=== PATIENT | female | born 1955 | race Caucasian/White ===

== ENCOUNTER 2016-10-04 05:04 | Inpatient (IN) | payer BC, OTHER ==
[2016-09-13 14:13] VITALS: BMI 37.0
--- NOTE | 2016-09-13 14:55 | PAT Medication Instructions ---
Service Date Sep 13, 2016. Current Home Medication List Calcium Carbonate-Vitamin D (Calcium + D), 1 TAB PO QAM Chromium-Cinnamon (Cinnamon Plus Chromium), 1 TAB PO NOON Fish Oil (Sharon-3), 1,000 MG PO NOON Furosemide (Lasix), 20 MG PO QAM PRN for RN Gabapentin (Neurontin), 300 MG PO BID Glipizide (Glipizide Er), 1 TAB PO BID Liraglutide (Victoza), 1.8 MG INJ QAM Losartan Potassium (Cozaar), 25 MG PO QAM Morphine Cont Rel (Ms Contin), 15 MG PO Q12 Oxycodone Ir (Roxicodone Ir), 10 MG PO Q6H PRN for Pain Pantoprazole (Protonix), 40 MG PO HS Pioglitazone Hcl (Pioglitazone Hcl), 45 MG PO QAM Rivaroxaban (Xarelto), 15 MG PO BID [Eileen C], 1,000 MG PO NOON [Flex Free Joint], 1 TAB PO NOON Medication Instructions For Your Scheduled Surgery Rivaroxaban (Xarelto), 15 MG PO BID (patient will check with blood doctor (Dr Espinosa) and surgeon for instructions) - Hold the following medications 10 days prior to surgery: Fish Oil (Sharon-3), 1,000 MG PO NOON Chromium-Cinnamon (Cinnamon Plus Chromium), 1 TAB PO NOON Flex Free Joint 1 TAB PO NOON - Hold the following medications the morning of surgery: Pioglitazone Hcl (Pioglitazone Hcl), 45 MG PO QAM Losartan Potassium (Cozaar), 25 MG PO QAM Glipizide (Glipizide Er), 1 TAB PO BID Furosemide (Lasix), 20 MG PO QAM PRN for RN Eileen C 1,000 MG PO NOON Calcium Carbonate-Vitamin D (Calcium + D), 1 TAB PO QAM - Take the following medications the morning of surgery with a sip of water: Oxycodone Ir (Roxicodone Ir), 10 MG PO Q6H PRN for Pain (can take up to four hours prior to surgery if needed) Morphine Cont Rel (Ms Contin), 15 MG PO Q12 (can take up to four hours prior to surgery if needed) Liraglutide (Victoza), 1.8 MG INJ QAM Gabapentin (Neurontin), 300 MG PO BID (if needed) - Take the following medications as scheduled the night before surgery: Pantoprazole (Protonix), 40 MG PO HS Oxycodone Ir (Roxicodone Ir), 10 MG PO Q6H PRN for Pain Morphine Cont Rel (Ms Contin), 15 MG PO Q12 Glipizide (Glipizide Er), 1 TAB PO BID Gabapentin (Neurontin), 300 MG PO BID If you have any questions please call us at [phone] or [phone] ( [place]) or [phone]
[2016-09-13 15:35] LABS: BASO % 0.4 %; BASO ABS # 0.03 K/uL (0-0.2); COMPLETE YES; EOS % 1.5 %; HEMATOCRIT 35.8 % (37-47); IG% 0.1 %; LYMPH % 34.8 %; LYMPH ABS # 2.38 K/uL (1.2-3.4); MEAN CELL VOLUME 90.9 fL (80-100); MEAN CORPUSCULAR HEMOGLOBIN 30.5 pg (25-34); MEAN CORPUSCULAR HGB CONC 33.5 g/dl (32-36); MEAN PLATELET VOLUME 9.8 fL (7.4-10.4); MONO % 11.1 %; NEUT % 52.1 %; PLATELET COUNT 326 K/uL (130-400); RED BLOOD COUNT 3.94 M/uL (4.2-5.4); WHITE BLOOD COUNT 6.84 K/uL (4.8-10.8)
[2016-09-13 15:37] LABS: URINE APPEARANCE CLEAR (CLEAR); URINE BILIRUBIN NEG (NEG); URINE COLOR YELLOW; URINE EPITHELIAL CELL AUTO >30 /lpf (0-5); URINE NITRITE NEG (NEG); URINE PH 7.5 (4.5-7.5); URINE SPECIFIC GRAVITY 1.011 (1.000-1.030); UROBILINOGEN NEG (NEG)
[2016-09-13 15:50] LABS: MANUAL MICROSCOPIC REQUIRED? NO; REVIEW REQ? NO
[2016-09-15 13:33] LABS: INR 1.5 (0.9-1.1); PARTIAL THROMBOPLASTIN RATIO 1.4; PROTHROMBIN TIME (PATIENT) 16.1 SECONDS (9.0-12.0)
--- NOTE | 2016-10-03 10:47 | HISTORY & PHYSICAL EXAMINATION ---
DATE OF ADMISSION: 10/04/2016 CHIEF COMPLAINT: Left hip pain. HISTORY OF PRESENT ILLNESS: Ms. Lui is a 61-year-old female with a longstanding history of pain in her left hip since May, her pain has gotten significantly worse. She is now rating it a 10/10. She is in a wheelchair. She has pain with her daily activities. She has limited standing and walking tolerance. Pain is worse with weightbearing. The patient has had anti-inflammatories and injections in the past. She has failed conservative treatment and is scheduled for left hip replacement. PAST MEDICAL HISTORY: Hypertension, hypercholesterolemia, diabetes with an A1c of 7, acid reflux, obesity and history of DVT a month ago. PAST SURGICAL HISTORY: Lumbar surgery, left Achilles and laparoscopic-band surgery. SOCIAL HISTORY: The patient denies alcohol or tobacco use. She lives in a single story home. She is and works as a corporate secretary. FAMILY HISTORY: Positive for DVT in her daughter. MEDICATIONS: Glipizide 10 mg b.i.d., Victoza 1.8 mg daily, losartan 25 mg daily, pantoprazole 40 mg daily, pioglitazone 45 mg daily, diclofenac 75 mcg b.i.d., furosemide 20 mg daily, gabapentin 300 mg b.i.d., morphine sulfate 15 mg b.i.d., oxycodone 10 mg 1-2 q. 6 hours p.r.n.; Xarelto 15 mg b.i.d. x21 days, then 20 mg daily; calcium 600 mg, Strawn-3 1000 mg, flex free joint complex, Eileen-C 1000 mg, and cinnamon 500 mg. ALLERGIES: None. REVIEW OF SYSTEMS: See HPI. Ten other systems reviewed, all negative. PHYSICAL EXAMINATION: VITAL SIGNS: Height 5 foot 4 inches, weight 215 pounds, BMI is 37. GENERAL: This is a well-developed, well-nourished female who is alert and oriented x3. Mood and affect are appropriate. HEENT: Normocephalic, atraumatic. Mucous membranes are moist and intact. NECK: Supple without lymphadenopathy. HEART: Regular rate and rhythm without murmurs, rubs or gallops. LUNGS: Clear to auscultation without wheezes or rhonchi. ABDOMEN: Soft and nontender. Bowel sounds are equal and active. EXTREMITIES: No ecchymosis, redness or warmth. Thigh and calf are soft and nontender. Logroll of the hip reproduces pain in the groin. She is neurovascularly intact with +5/5 strength. X-RAY EXAMINATION: AP and lateral views show joint space narrowing and osteophyte formation. IMPRESSION: 1. Degenerative joint disease, left hip. 2. Recent history of deep venous thrombosis. PLAN: The patient will be admitted for a left total hip arthroplasty. We will plan on Lovenox bridging per Dr. Espinosa, who is her assembler arranger. They are recommending that she discontinue Xarelto 5 days prior to procedure and do 100 mg subQ Lovenox b.i.d. She can resume prophylactic dosing of Lovenox postoperatively and then may resume Xarelto.
[~2016-10-04] VITALS: Ht 162.6 cm; Wt 98.2 kg
[2016-10-04] VITALS (8 sets, daily range): BP systolic 95–168; BP diastolic 57–96; PULSE 69–95; TEMP 36.6–36.9; O2SAT 95–100; Ht 162.6 cm; Wt 98.2 kg
[~2016-10-04 05:04] MED LIST: CALC600T9 PO; CHRO1CAP PO; ESTER C PO; FURO-85 PO; GABA-113 PO; GLIP-199 PO; LIRA18IN INJ; LOSA1TAB PO; MORP15TA19 PO; OMEG10007 PO; OXYC1TAB3 PO; PANT40TA PO; PIOG1TAB20 PO; XRL10 PO; [UNRECOGNIZED DRUG - OTHER] PO
[2016-10-04] MEDS ORDERED: POLYMYXIN B SULFATE 100,000 UNITS in NSS 100ML IR SCH (06:00)
[2016-10-04] MEDS ORDERED: LACTATED RINGER'S 1000ML IV SCH (06:00)
[2016-10-04] MEDS ORDERED: LACTATED RINGER'S 1000ML 1,000 ML IV SCH (06:00)
[2016-10-04] MEDS ORDERED: VANCOMYCIN INJ 400 MG in NSS 100ML IR SCH (06:00)
[2016-10-04] MEDS: TRANEXAMIC ACID INJ 1,000 MG in SODIUM CHLORIDE 0.9% 100ML 100 ML IV SCH ×2 (06:00→06:30)
[2016-10-04] MEDS ORDERED: ROPIVACAINE 5MG/ML 30 ML 150 MG, BUPIVACAINE/EPINEPHR 0.5% MPF 30 ML, KETOROLAC TROMETH... INFIL SCH ×7 (06:00)
[2016-10-04 06:02] LABS: PARTIAL THROMBOPLASTIN RATIO 1.1; PROTHROMBIN TIME (PATIENT) 10.9 SECONDS (9.0-12.0)
[2016-10-04] MEDS ORDERED: BUPIVACAINE 0.5 % 5 MG/1 ML PF 10ML VIAL ONE (06:17)
[2016-10-04] MEDS ORDERED: love SC (06:19)
[2016-10-04] MEDS ORDERED: lovenox SQ (06:21)
[2016-10-04] MEDS ORDERED: LIDOCAINE HCL 2% 2 ML VIAL (20MG/ML) ONE (06:30)
[2016-10-04] MEDS ORDERED: MIDAZOLAM HCL 1 MG/ML 2ML VIAL ONE (06:30)
[2016-10-04] MEDS ORDERED: PROPOFOL IV EMULSION 10 MG/ML 20 ML VIAL IV ONE (06:30)
[2016-10-04] MEDS ORDERED: FENTANYL CITRATE INJ 50 MCG/1 ML 2 ML VIAL ONE ×2 (06:31→07:54)
[2016-10-04] MEDS ORDERED: GLYCOPYRROLATE INJ 0.2 MG/ML VIAL ONE (06:55)
[2016-10-04] MEDS ORDERED: NEOSTIGMINE METHYLSULFATE 5 MG/5 ML SYR ONE (06:55)
[2016-10-04] MEDS ORDERED: ROCURONIUM BROMIDE 10 MG/ML 5 ML VIAL ONE ×2 (06:55→08:33)
[2016-10-04] MEDS ORDERED: ONDANSETRON INJ 2 MG/ML 2 ML VIAL ONE (06:55)
[2016-10-04] MEDS ORDERED: DEXAMETHASONE SOD INJ 4 MG/ML VIAL ONE (06:55)
--- NOTE | 2016-10-04 07:07 | History & Physical Bridge Note ---
H&P Re-Evaluation Bridge Note: I have examined the patient, reviewed the History & Physical and in the interval since the performance of the History & Physical I have noted the following changes of clinical significance: No changes noted
[2016-10-04] MEDS ORDERED: CeleBREX 200 MG CAP ONE (07:10)
[2016-10-04] MEDS ORDERED: CEFAZOLIN IV 2,000 MG/60 ML D5W IV ONE (07:10)
[2016-10-04] MEDS ORDERED: LACTATED RINGER'S 1000ML 1,000 ML IV PRN (07:10)
[2016-10-04] MEDS ORDERED: ACETAMINOPHEN 500 MG TAB PO ONE (07:10)
[2016-10-04] MEDS ORDERED: FAMOTIDINE 20 MG TAB ONE (07:10)
[2016-10-04] MEDS ORDERED: GABAPENTIN 300 MG CAP PO ONE (07:11)
[2016-10-04] MEDS ORDERED: BACITRACIN 50000 UNIT VIAL ONE ×2 (07:12→08:27)
[2016-10-04] MEDS ORDERED: OXYCODONE HCL 10 MG TABCR (OXYCONTIN) PO ONE (07:12)
[2016-10-04] MEDS ORDERED: POVIDONE-IODINE OP SOLN 30 ML BTL ONE (07:12)
[2016-10-04] MEDS ORDERED: METOCLOPRAMIDE HCL 10 MG TAB PO ONE (07:13)
[2016-10-04] MEDS ORDERED: MoRPHine SULFATE 10 MG/ML CARP/VIAL IV PRN (07:15)
[2016-10-04] MEDS ORDERED: FENTANYL CITRATE INJ 50 MCG/1 ML 2 ML VIAL IV PRN (07:15)
[2016-10-04] MEDS ORDERED: ONDANSETRON INJ 2 MG/ML 2 ML VIAL IV PRN ×2 (07:15→09:30)
[2016-10-04] MEDS ORDERED: HYDROmorphone INJ 2 MG/ML SYR/VIAL ONE (07:36)
[2016-10-04] MEDS ORDERED: METOPROLOL TARTRATE 1 MG/ML VIAL ONE (08:00)
[2016-10-04] MEDS ORDERED: ESMOLOL HCL 10 MG/ML 10 ML VIAL ONE (08:24)
[2016-10-04] MEDS ORDERED: LABETALOL HCL IV 5 MG/ML 20ML ONE (08:39)
--- NOTE | 2016-10-04 09:16 | [facility] Post Operative Brief Note ---
Immediate Operative Summary Operative Date Oct 04, 2016. Pre-Operative Diagnosis Left Hip Degenerative Joint Disease Post-Operative Diagnosis Left Hip Degenerative Joint Disease MORBID OBESITY Procedure(s) Performed Left Total Hip Arthroplasty, Direct Anterior Approach Surgeon Dr. Rodney Coppola Industrial Chemist Surgeon(s) Lisbeth Arnold PA-C Estimated Blood Loss 500 mL Findings OBESE SEVERE DZ TOTAL HEAD LOSS Specimens A: Left Femoral Head Complication(s) None Disposition Recovery Room / PACU
[2016-10-04] MEDS ORDERED: OXYCODONE HCL IR 5 MG TAB (IMMEDIATE RELEASE) PO PRN (09:30)
[2016-10-04] MEDS ORDERED: ZOLPIDEM TARTRATE 5 MG TAB PO PRN (09:30)
[2016-10-04] MEDS ORDERED: SOD PHOSPHATE/SOD BIPHOSPHATE ENEMA 132 ML BTL PR PRN (09:30)
[2016-10-04] MEDS ORDERED: ALUMINUM/MAGNESIUM/SIMETH (MAALOX MAX) 30 ML UDC PO PRN (09:30)
[2016-10-04] MEDS ORDERED: MAGNESIUM HYDROXIDE SUSP 30 ML UDC PO PRN (09:30)
[2016-10-04] MEDS ORDERED: METOCLOPRAMIDE HCL INJ 5 MG/ML 2 ML VIAL IV PRN (09:30)
[2016-10-04] MEDS ORDERED: DiphenhydrAMINE HCL 50 MG/ML VIAL IV PRN (09:30)
[2016-10-04] MEDS ORDERED: MoRPHine SULFATE 4 MG/ML 1 ML CARP\\VIAL IV PRN (09:30)
[2016-10-04] MEDS ORDERED: BISACODYL 10 MG SUPP PR PRN (09:30)
[2016-10-04] MEDS ORDERED: FUROSEMIDE 20 MG TAB PO PRN (09:30)
[2016-10-04] MEDS ORDERED: PHARMACY GLYCEMIC MGMT CONSULT PRN (09:38)
--- NOTE | 2016-10-04 09:46 | DIAGNOSTIC IMAGING REPORT ---
LEFT HIP UNILATERAL 1 VIEW CLINICAL HISTORY: LEFT ANTERIOR HIP COMPARISON STUDY: None. FINDINGS: Total fluoroscopy time was 14 seconds. Single fluoroscopic spot image. There is a left total hip arthroplasty. The hardware appears intact. No fracture or dislocation. IMPRESSION: Fluoroscopy provided for a left total hip arthroplasty. Electronically signed by: Sunil Wiley M.D. 10/04/2016 9:44 AM Dictated Date/Time: 10/04/2016 9:44 AM
--- NOTE | 2016-10-04 10:14 | DIAGNOSTIC IMAGING REPORT ---
AP PELVIS, CROSSTABLE LATERAL LEFT HIP History: Left total hip arthroplasty. Degenerative arthritis. Postop. FINDINGS: The patient is status post a left total hip arthroplasty. The hardware is intact. No fracture or dislocation. Surgical drains are in place. IMPRESSION: Left total hip arthroplasty. No evidence for hardware complication. Electronically signed by: Sunil Wiley M.D. 10/04/2016 10:12 AM Dictated Date/Time: 10/04/2016 10:12 AM
[2016-10-04] MEDS ORDERED: DEXTROSE 50% 50 ML SYR IV PRN (10:30)
[2016-10-04] MEDS ORDERED: GLUCAGON FOR INJ 1 MG VIAL SQ PRN (10:30)
[2016-10-04] MEDS ORDERED: GLUCOSE 10 TABS/TUBE PO PRN (10:30)
[2016-10-04] MEDS ORDERED: GLUCOSE 40% GEL 15 GM TUBE PO PRN (10:30)
--- NOTE | 2016-10-04 10:30 | Pharmacy Progress Note ---
Glycemic Control Intl Consult Date of Service Oct 04, 2016. Scope Glycemic Pharmacist consulted by Dr Brionna Coppola on 10/04/16 for glycemic control and to write orders per [facility] inpatient glycemic control protocol Objective Weight (Kilograms): 98.20 Accuchecks BSG (last 24hrs): Test 10/04/16 06:12 Bedside Glucose 139 mg/dl (70-90) Recent Pertinent Medications Outpatient Anti-diabetic Regimen: * Victoza 1.8mg SQ daily * Glipizide ER 10mg PO BID * Actos 45mg PO Daily * A1c = 7 % per H&P note Risk Factors for Insulin Resistance: * Steroids: Dexamethasone 8mg IV X1 today in OR * Infection: Pre and post op Ancef * IVF: LR * Recent Surgery: POD #0 Left LUIS * Diet: Type 2 DM Assessment & Plan ASSESSMENT: * 61 yo female Type 2 diabetic, managed on orals and Victoza as outpatient, A1c well controlled at 7% per H&P. Patient did have her Victoza this morning at 0345. Random BSG = 139mg/dL. * Patient received 1 dose of IV Dexamethasone 8mg x1 in OR today, none ordered post op and Victoza dose given LAST TRIMMER, therefore I will not start patient on basal insulin. * ADA & AACE recommend a goal blood sugar range 140-180 mg/dl for the majority of critically ill & non-critically ill patients. However, more stringent targets may be selected in individual cases. Will use 100-140mg/dl for patient' s age, A1c, and to facilitate post op healing. PLAN FOR INPATIENT GLYCEMIC CONTROL: * Holding outpatient oral diabetes medications - may restart in 1-2 days, after evaluating patient's renal function and diet resuming. * Correctional Insulin with NOVOLOG per scale ACHS or Q6hrs while NPO * Goal Range: Low 100 mg/dL - High 140 mg/dL * Correction Factor: 30 mg/dL/unit * Nutritional / Prandial insulin per carb ratio of 1 unit per 10 grams CHO consumed * Please note that the plan above was derived based on current level of insulin resistance and hospital stress. These recommendations are appropriate for inpatient admission only. Plan of care upon discharge will need to be reassessed to avoid potential outpatient hypo/hyperglycemia. Thank you.
--- NOTE | 2016-10-04 10:47 | Anesthesiology Progress Note ---
Anesthesia Post Op Note Date & Time Oct 04, 2016 at 10:47 Vital Signs Pain Intensity: 0 Vital Signs Past 12 Hours Date Time Temp Pulse Resp B/P Pulse Ox O2 Delivery O2 Flow Rate FiO2 10/04/16 10:45 80 18 112/56 100 Nasal Cannula 3 10/04/16 10:35 74 18 104/69 100 Nasal Cannula 3 10/04/16 10:25 36.4 71 18 112/55 100 Nasal Cannula 4 10/04/16 10:15 75 18 115/58 100 Nasal Cannula 4 10/04/16 10:05 78 18 100/45 100 Mask 5 10/04/16 09:55 36.1 90 18 102/70 100 Mask 10 10/04/16 05:40 36.6 95 20 168/96 100 Room Air Notes Mental Status: alert / awake / arousable, participated in evaluation Pt Amnestic to Procedure: Yes Nausea / Vomiting: adequately controlled Pain: adequately controlled Airway Patency, RR, SpO2: stable & adequate BP & HR: stable & adequate Hydration State: stable & adequate Anesthetic Complications: no major complications apparent
[2016-10-04] MEDS: INSULIN ASPART 100 UNITS/ML 3 ML PEN SC SCH ×4 (11:00→21:33)
[2016-10-04 12:37] LABS: HEMATOCRIT 32.2 % (37-47); MEAN CELL VOLUME 90.7 fL (80-100); MEAN CORPUSCULAR HEMOGLOBIN 30.7 pg (25-34); MEAN PLATELET VOLUME 9.9 fL (7.4-10.4); PLATELET COUNT 232 K/uL (130-400); RED BLOOD COUNT 3.55 M/uL (4.2-5.4); WHITE BLOOD COUNT 12.52 K/uL (4.8-10.8)
[2016-10-04 13:10] LABS: ALKALINE PHOSPHATASE 57 U/L (45-117); ALT/SGPT 34 U/L (12-78); AST/SGOT 25 U/L (15-37)
[2016-10-04] MEDS: SODIUM CHLORIDE 0.9% 1000ML 1,000 ML IV SCH ×2 (13:16→19:33)
[2016-10-04 13:22] LABS: MEAN CORPUSCULAR HGB CONC 33.9 g/dl (32-36)
[2016-10-04] MEDS: ACETAMINOPHEN 500 MG TAB PO SCH ×2 (14:25→21:30)
[2016-10-04] MEDS: CEFAZOLIN IV 2,000 MG in DEXTROSE 5% 50ML 50 ML IV SCH ×2 (15:30→23:36)
[2016-10-04] MEDS: KETOROLAC TROMETHAMINE 30 MG/ML VIAL IV. SCH ×2 (15:32→21:29)
[2016-10-04] MEDS ORDERED: NURSING VERBAL MED ORDER ONE (17:30)
--- NOTE | 2016-10-04 17:55 | OPERATIVE REPORT ---
DATE OF OPERATION: 10/04/2016 PREOPERATIVE DIAGNOSES: 1. Severe avascular necrosis, left hip. 2. Morbid obesity. POSTOPERATIVE DIAGNOSES: Same. PROCEDURE: Left total hip replacement. SURGEON: Rodney Coppola MD TELEPHONE INSTALLER: SUMAYA Branch ANESTHESIA: General. BLOOD LOSS: 500 mL. REPLACEMENT FLUIDS: 2200 mL crystalloid. DRAINS: Hemovac x2. CULTURES: None. COMPLICATIONS: None. COMPONENTS USED: [employer] hip system: Acetabulum size 48, femur size 6 standard offset, femoral head +4, 32 mm Oxinium. NOTE: Lisbeth Arnold was present and assisted throughout due to the complicated nature of this case. She helped with preparation and set up. She first assisted throughout and personally closed the fascial, subcutaneous and skin layers and applied the postoperative dressing. DESCRIPTION OF PROCEDURE: Following satisfactory general anesthesia because of a history of anticoagulation, the patient was supine. The left leg was placed in the traction device, the right leg in the well leg romero. The leg was prepared with ChloraPrep and draped sterilely. An anterior approach was performed. The patient had an extremely large subcutaneous fat layer which even on her anterior thigh measured at least 6 inches thick. This made exposure tedious and difficult. Eventually with some difficulty, the fascia was identified and opened and the circumflex femoral vessels were identified and ligated. An anterior capsulotomy was performed with difficulty with increased time and effort required. The hip was completely destroyed. The head was essentially fragmented and gone with just a pushing of the neck due to severe avascular necrosis. There was general oozing because of anticoagulation, which added also to the difficulty of the case. Femoral neck and head were eventually trimmed with removal of the femoral neck and the pieces of the femoral head. The acetabular self-retraining retractor was placed. Further debridement of the acetabulum was required and again with general oozing and bleeding which made exposure and preparation difficult. Eventually the acetabulum was identified and reamed under fluoroscopic guidance and a 48 shell was impacted and was stable in an anatomic position and was secured with a dome screw. Local anesthetic was placed and after irrigation, the polyethylene liner was placed. The femur was then placed into position of external rotation, extension and adduction. Femoral canal was identified, exposure was difficult because of the obese body habitus. The canal was prepared up to the size 6. Intraoperative fluoroscopy with reduction showed good fit and fill of the proximal canal and yarsanism of leg lengths using fluoroscopic landmarks. The hip was dislocated, local anesthetic was placed, a final implant was placed and the hip was irrigated and reduced with fluoroscopy confirming the position. A Betadine soak was performed for 5 minutes. The Betadine was then irrigated. The capsule was closed with #1 Vicryl interrupted and a drain was placed. The fascia was closed with #1 Vicryl running suture. The patient had an extremely large subcutaneous fat layer which required closure with 3 layers over an additional drain, #2 Vicryl deep, #1 Vicryl more superficial and then 2-0 Vicryl in the most superficial layer. Surgical claudine and a dry dressing was applied. The patient was extubated and returned to her bed and taken to the recovery room having tolerated the procedure in stable condition. I attest to the content of the Intraoperative Record and any orders documented therein. Any exceptio ns are noted below.
[2016-10-04] MEDS ORDERED: NON-FORMULARY MEDICATION (Glipizide (Glipizide Er) 1 TAB) PO SCH (21:00)
[2016-10-04] MEDS: GABAPENTIN 300 MG CAP PO SCH (21:29)
[2016-10-04] MEDS: SENNA 8.6 MG TAB PO SCH (21:30)
[2016-10-04] MEDS: MoRPHine SULFATE CR 15 MG TAB (MS CONTIN) PO SCH (21:35)
[2016-10-05] VITALS (7 sets, daily range): BP systolic 91–123; BP diastolic 47–72; PULSE 68–96; TEMP 36.5–36.7; O2SAT 96–99
[2016-10-05] MEDS ORDERED: INSULIN ASPART 100 UNITS/ML 3 ML PEN SC SCH (02:00)
[2016-10-05] MEDS: KETOROLAC TROMETHAMINE 30 MG/ML VIAL IV. SCH ×4 (03:59→21:14)
[2016-10-05] MEDS: SODIUM CHLORIDE 0.9% 1000ML 1,000 ML IV SCH (05:35)
[2016-10-05] MEDS: ACETAMINOPHEN 500 MG TAB PO SCH ×3 (05:36→21:15)
[2016-10-05 06:25] LABS: HEMATOCRIT 22.9 % (37-47); MEAN CELL VOLUME 92.3 fL (80-100); MEAN CORPUSCULAR HEMOGLOBIN 31.9 pg (25-34); MEAN CORPUSCULAR HGB CONC 34.5 g/dl (32-36); MEAN PLATELET VOLUME 9.6 fL (7.4-10.4); PLATELET COUNT 195 K/uL (130-400); RED BLOOD COUNT 2.48 M/uL (4.2-5.4); WHITE BLOOD COUNT 10.21 K/uL (4.8-10.8)
[2016-10-05 06:41] LABS: ANISOCYTOSIS PRESENT; BASO % 0.1 %; BASO ABS # 0.01 K/uL (0-0.2); COMPLETE YES; IG% 0.2 %; LYMPH % 9.3 %; LYMPH ABS # 0.95 K/uL (1.2-3.4); MONO % 9.3 %; NEUT % 81.1 %
[2016-10-05 06:46] LABS: BUN/CREATININE RATIO 16.1 (10-20); CALCIUM 8.3 mg/dl (8.5-10.1); CREATININE 1.1 mg/dl (0.60-1.20); POTASSIUM 4.3 mmol/L (3.5-5.1)
--- NOTE | 2016-10-05 08:06 | Orthopedic Progress Note ---
Orthopedic Progress Note Date of Service Oct 05, 2016. Subjective Post OP Day: 1 Reports: feeling well, pain controlled w PO medications, Denies: SOB, chest pain , complaints, light headedness, nausea / vomiting Objective calves soft nontender, hip located, dressing C/D/I, A&O x3, toes mobile (125 LAST SHIFT ) Date Time Temp Pulse Resp B/P Pulse Ox O2 Delivery O2 Flow Rate FiO2 10/05/16 07:54 36.5 76 16 96/47 98 Room Air 10/05/16 03:02 36.6 68 16 91/56 98 Room Air 10/04/16 23:37 36.6 82 15 110/70 95 Room Air 10/04/16 19:52 36.9 79 18 118/68 98 Room Air 10/04/16 19:17 Room Air 10/04/16 16:30 100 Room Air 10/04/16 16:05 36.7 93 18 95/57 100 Room Air 10/04/16 12:30 36.6 83 16 129/71 100 2.0 10/04/16 12:12 Nasal Cannula 2.0 10/04/16 11:51 36.7 69 18 96/61 100 Nasal Cannula 2.0 10/04/16 11:48 Nasal Cannula 2.0 10/04/16 11:32 73 16 104/64 100 Nasal Cannula 2.0 10/04/16 10:45 80 18 112/56 100 Nasal Cannula 3 10/04/16 10:35 74 18 104/69 100 Nasal Cannula 3 10/04/16 10:25 36.4 71 18 112/55 100 Nasal Cannula 4 10/04/16 10:15 75 18 115/58 100 Nasal Cannula 4 10/04/16 10:05 78 18 100/45 100 Mask 5 10/04/16 09:55 36.1 90 18 102/70 100 Mask 10 Laboratory Results 24 Hours: Test 10/04/16 12:30 10/05/16 06:00 Hematocrit 32.2 % 22.9 % Hemoglobin 10.9 g/dL 7.9 g/dL White Blood Count 10.21 K/uL Red Blood Count 2.48 M/uL Mean Corpuscular Volume 92.3 fL Mean Corpuscular Hemoglobin 31.9 pg Mean Corpuscular Hemoglobin Concent 34.5 g/dl Platelet Count 195 K/uL Mean Platelet Volume 9.6 fL Neutrophils (%) (Auto) 81.1 % Lymphocytes (%) (Auto) 9.3 % Monocytes (%) (Auto) 9.3 % Eosinophils (%) (Auto) 0.0 % Basophils (%) (Auto) 0.1 % Neutrophils # (Auto) 8.28 K/uL Lymphocytes # (Auto) 0.95 K/uL Monocytes # (Auto) 0.95 K/uL Eosinophils # (Auto) 0.00 K/uL Basophils # (Auto) 0.01 K/uL Assessment & Plan Assessment: POD 1 LUIS FOR SEVRE AVN ACUTE ANEMIA DUE TO SURGERY AND ANTICOAGULATION DM OBESITY HX PE Plan: MONITOR HGB CURRENTLY SEEMS TO KERA WELL PULSE STABLE WATCH SUGARS POSSIBLE DC THUR W ADVANTAGE Inhouse Planning Pain Management: Celebrex, Oxycontin, PO Tylenol, Oxy IR DVT Prophylaxis: TEDs, SCDs, Xarelto (10 MG QD FOR [address] GRUBBS ) Discharge Planning Discharge Planning: home with home health DVT Prophylaxis: TEDs, Xarelto (S RESUME NORMAL DOSE AT DC )
--- NOTE | 2016-10-05 08:31 | Anesthesiology Progress Note ---
Anesthesia Post Op Note Date & Time Oct 05, 2016 at 08:30 Vital Signs Pain Intensity: 1.0 Vital Signs Past 12 Hours Date Time Temp Pulse Resp B/P Pulse Ox O2 Delivery O2 Flow Rate FiO2 10/05/16 07:54 36.5 76 16 96/47 98 Room Air 10/05/16 07:07 Room Air 10/05/16 03:02 36.6 68 16 91/56 98 Room Air 10/04/16 23:37 36.6 82 15 110/70 95 Room Air Notes Mental Status: alert / awake / arousable, participated in evaluation Pt Amnestic to Procedure: Yes Nausea / Vomiting: adequately controlled Pain: adequately controlled Airway Patency, RR, SpO2: stable & adequate BP & HR: stable & adequate Hydration State: stable & adequate Anesthetic Complications: no major complications apparent
[2016-10-05] MEDS ORDERED: NON-FORMULARY MEDICATION (Liraglutide (Victoza) 1.8 MG) INJ SCH (09:00)
[2016-10-05] MEDS: LOSARTAN POTASSIUM 25 MG TAB PO SCH (09:00)
[2016-10-05] MEDS ORDERED: PIOGLITAZONE HCL 45 MG PO SCH (09:00)
[2016-10-05] MEDS: INSULIN ASPART 100 UNITS/ML 3 ML PEN SC SCH ×4 (09:40→21:23)
[2016-10-05] MEDS: MULTIVITAMIN TAB PO SCH (09:41)
[2016-10-05] MEDS: MoRPHine SULFATE CR 15 MG TAB (MS CONTIN) PO SCH ×2 (09:42→20:10)
[2016-10-05] MEDS: GABAPENTIN 300 MG CAP PO SCH ×2 (09:42→20:08)
[2016-10-05] MEDS: RIVAROXABAN 10 MG TAB PO SCH (09:42)
[2016-10-05] MEDS: PANTOprazole SOD 40 MG TAB PO SCH (09:42)
--- NOTE | 2016-10-05 13:11 | Pharmacy Progress Note ---
Glycemic: Assessment & Plan Date of Service Oct 05, 2016. Assessment & Plan The patient received 32 units of insulin yesterday. BSGs ranging 169 - 343 mg/ dl over the past 24hrs, due to one time dose of IV dexamethasone in OR yesterday. POD1 Left TKA. Patient is ready to restart orals today, will continue Novolog CF and CR as Victoza is non-formulary and BSG not at goal, but loosen somewhat as dexamethasone is wearing off. Possibly DC tomorrow. Test 10/04/16 16:43 10/04/16 20:39 10/05/16 01:43 10/05/16 06:00 Bedside Glucose 343 mg/dl (70-90) 281 mg/dl (70-90) 179 mg/dl (70-90) Random Glucose 169 mg/dl (70-99) Test 10/05/16 07:54 10/05/16 11:49 Bedside Glucose 191 mg/dl (70-90) 241 mg/dl (70-90) * Orals: Glipizide ER 10mg PO BID, start with dinner; Actos 45mg po QAM, start tomorrow morning * Correctional Insulin: Novolog Correction per scale ACHS Goal Range: Low 100 mg/dL - High 140 mg/dL CHANGE: Correction Factor: 30 mg/dL/unit * Prandial insulin: CHANGE: Per carb ratio of 1 unit per 10 grams CHO consumed Pharmacy will continue to monitor patient daily and write orders per [facility] inpatient glycemic control protocol. Thanks. * Please note that the plan above was derived based on current level of insulin resistance and hospital stress. These recommendations are appropriate for inpatient admission only. Plan of care upon discharge will need to be reassessed to avoid potential outpatient hypo/hyperglycemia.
[2016-10-05] MEDS ORDERED: ACETAMINOPHEN 500 MG TAB PO ONE (13:26)
[2016-10-05] MEDS: SENNA 8.6 MG TAB PO SCH (20:08)
[2016-10-06] VITALS (11 sets, daily range): BP systolic 86–159; BP diastolic 56–83; PULSE 88–118; TEMP 36.3–36.9; O2SAT 98–100
[2016-10-06] MEDS: KETOROLAC TROMETHAMINE 30 MG/ML VIAL IV. SCH ×2 (03:30→09:18)
[2016-10-06] MEDS: ACETAMINOPHEN 500 MG TAB PO SCH (05:41)
[2016-10-06 05:48] LABS: BASO % 0.3 %; BASO ABS # 0.02 K/uL (0-0.2); EOS % 1.7 %; HEMATOCRIT 22.4 % (37-47); IG% 0.4 %; LYMPH % 18.9 %; LYMPH ABS # 1.47 K/uL (1.2-3.4); MEAN CELL VOLUME 91.1 fL (80-100); MEAN CORPUSCULAR HEMOGLOBIN 30.9 pg (25-34); MEAN CORPUSCULAR HGB CONC 33.9 g/dl (32-36); MEAN PLATELET VOLUME 9.5 fL (7.4-10.4); MONO % 10.6 %; NEUT % 68.1 %; PLATELET COUNT 200 K/uL (130-400); RED BLOOD COUNT 2.46 M/uL (4.2-5.4); WHITE BLOOD COUNT 7.76 K/uL (4.8-10.8)
[2016-10-06 06:11] LABS: COMPLETE YES
--- NOTE | 2016-10-06 07:27 | Orthopedic Progress Note ---
Orthopedic Progress Note Date of Service Oct 06, 2016. Subjective Post OP Day: 2 Reports: feeling well, Denies: SOB, calf pain, chest pain, light headedness, nausea / vomiting Additional Notes: HGB 7.6 TODAY. SYSTOLICS IN THE 80S. OTHERWISE ASYMPTOMATIC Objective calves soft nontender, N/V intact, hip located, dressing C/D/I (BRUISING.), A&O x3, toes mobile Date Time Temp Pulse Resp B/P Pulse Ox O2 Delivery O2 Flow Rate FiO2 10/06/16 06:31 96 86/56 100 Room Air 10/05/16 23:20 Room Air 10/05/16 23:15 36.7 92 20 95/61 96 Room Air 10/05/16 16:00 99 Room Air 10/05/16 15:50 36.5 96 18 112/70 99 Room Air 10/05/16 12:16 87 98 10/05/16 11:19 36.5 96 18 123/66 98 Room Air 10/05/16 07:54 36.5 76 16 96/47 98 Room Air Laboratory Results 24 Hours: Test 10/06/16 05:37 White Blood Count 7.76 K/uL Red Blood Count 2.46 M/uL Hemoglobin 7.6 g/dL Hematocrit 22.4 % Mean Corpuscular Volume 91.1 fL Mean Corpuscular Hemoglobin 30.9 pg Mean Corpuscular Hemoglobin Concent 33.9 g/dl Platelet Count 200 K/uL Mean Platelet Volume 9.5 fL Neutrophils (%) (Auto) 68.1 % Lymphocytes (%) (Auto) 18.9 % Monocytes (%) (Auto) 10.6 % Eosinophils (%) (Auto) 1.7 % Basophils (%) (Auto) 0.3 % Neutrophils # (Auto) 5.29 K/uL Lymphocytes # (Auto) 1.47 K/uL Monocytes # (Auto) 0.82 K/uL Eosinophils # (Auto) 0.13 K/uL Basophils # (Auto) 0.02 K/uL Assessment & Plan Assessment: POD 2 LUIS FOR SEVRE AVN ACUTE ANEMIA DUE TO SURGERY AND ANTICOAGULATION DM OBESITY HX PE Plan: ANEMIA- PATIENT AGREEABLE TO 1 UNIT PRBCS WATCH SUGARS POSSIBLE DC THUR W ADVANTAGE HH Inhouse Planning Pain Management: Celebrex, Oxycontin, PO Tylenol, Oxy IR DVT Prophylaxis: TEDs, SCDs, Xarelto (10 MG QD FOR [address] GRUBBS ) Discharge Planning Discharge Planning: home with home health DVT Prophylaxis: TEDs, Xarelto (S RESUME NORMAL DOSE AT DC )
[2016-10-06] MEDS ORDERED: ACET-1138 PO (07:31)
[2016-10-06] MEDS ORDERED: CLB200 PO (07:31)
[2016-10-06] MEDS ORDERED: OXYC1TAB3 PO (07:31)
[2016-10-06] MEDS ORDERED: ONDA8TAB6 PO (07:31)
[2016-10-06] MEDS ORDERED: MORP15TA19 PO (07:31)
[2016-10-06] MEDS ORDERED: SNK PO (07:31)
--- NOTE | 2016-10-06 07:32 | Discharge Instructions ---
Discharge Instructions Date of Service Oct 06, 2016. Admission Reason for Admission: Left Hip Degenerative Arthritis Discharge Discharge Diagnosis / Problem: SP LEFT TOTAL HIP Discharge Goals Goal(s): Decrease discomfort, Improve function, Increase independence Activity Recommendations Activity Limitations: per Instructions/Follow-up section . Instructions / Follow-Up Instructions / Follow-Up ACTIVITY RECOMMENDATIONS: SELF CARE INSTRUCTIONS AFTER TOTAL HIP REPLACEMENT : Direct Anterior Approach Until the incision and soft tissues around your hip have healed, there is a possibility that the hip prosthesis could dislocate. A. Hip flexion ( Up & Down out of chair or steps ) may be difficult. This is normal. B. Numbness in front of the thigh is also normal for a few weeks. C. Use hand rails when walking on stairs. D. Wear low heeled shoes with non-slip soles. E. Be sure that your floors are free of things that could trip you - throw rugs , electrical cords, small objects. Avoid wet and waxed floors, especially with crutches and canes. F. Try to walk several times a day with rest periods between. G. Continue with all the exercises taught to you in the hospital. Again, make walking a part of your daily routine. SPECIAL CARE INSTRUCTIONS: VERY IMPORTANT TO READ AND REVIEW A. You may still be at risk for phlebitis and blood clots. 1. Wear surgical stockings (TIMOTHY hose) for 2 weeks after surgery to improve circulation and reduce swelling. 2. Take Aspirin 81mg twice daily for 4 weeks or as directed by your doctor. This is your blood thinner. 3. High risk patients may be prescribed a stronger blood thinner if necessary. 4. If you are on Coumadin normally, your family doctor/high school foreign language teacher should monitor your blood work. Expect a phone call the day of or the day after bloodwork is drawn to adjust your dosage. B. You must take antibiotics before having dental work, bladder, bowel and other surgery. Your doctor will provide you with a permanent card to carry describing precautions. C. Call [facility] if you have a fever, redness or swelling around the incision, cloudy drainage from incision, or sudden increase in pain in your hip, not relieved by your regular pain medication. D. Please call the office at if you have any concerns or questions about your operation or recovery. * YOU MAY SHOWER, NO TUB BATHS UNTIL CLEARED BY YOUR DOCTOR. - Keep an extra close eye on the top portion of your incision. Be sure to keep clean & dry. * WEAR TIMOTHY HOSE 20 HOURS PER DAY FOR 2 WEEKS. * YOU MAY PROGRESS FROM A WALKER, TO A CANE, TO INDEPENDENT AT YOUR OWN PACE. * MOST PATIENTS WILL HAVE HOME NURSING FOR THERAPY. IF YOU DECIDE TO DO OUTPATIENT PHYSICAL THERAPY, PLEASE SCHEDULE THIS 3 TIMES PER WEEK. KEEP SURGICAL DRESSING INTACT X 7 DAYS. AFTER 7 DAYS MAY REMOVE 4X4 AND AQUACEL THEN SEE BELOW. * DERMABOND Prineo- This is a mesh tape dressing that is covered with glue. It should remain in place until the incision is properly healed, usually 10-14 days. This dressing is designed to naturally slough off. You may trim the excess mesh tape as it peels off. Incision may be briefly wet in a shower. Dry immediately by blotting with a clean, dry towel. Do not bath or swim until instructed by your doctor. Do not scratch, rub, or pick at the dressing. Do not apply any topical ointments or lotions until dressing is completely removed and/or instructed by your doctor. There may be a small piece of suture material at one end of your incision. Do not pull or trim this. If it is bothersome or catching on clothing, you may cover it with a band-aid. FOLLOW UP VISIT: If appointment is not already scheduled: Please call [facility] to make a follow-up appointment for 2 weeks after your surgery at . Current Hospital Diet Patient's current hospital diet: Diabetes Type 2 Diet Discharge Diet Recommended Diet: Regular Diet Procedures Procedures Performed: Left Total Hip Arthroplasty, Direct Anterior Approach Pending Studies Studies pending at discharge: no Medical Emergencies . Who to Call and When: Medical Emergencies: If at any time you feel your situation is an emergency, please call 911 immediately. . Non-Emergent Contact Non-Emergency issues call your: Surgeon . "Provider Documentation" section prepared by Lisbeth Arnold. VTE Core Measure Inpt VTE Proph given/why not?: Other Anticoagulation, T.E.D. Stockings, SCD's [place] Drug Monitoring Program Search Results: patient reviewed within database, no issues identified
[2016-10-06] MEDS ORDERED: DiphenhydrAMINE HCL 50 MG/ML VIAL IV SCH (08:00)
[2016-10-06] MEDS ORDERED: PIOGLITAZONE TAB 15 MG TAB PO SCH (09:00)
[2016-10-06] MEDS: LOSARTAN POTASSIUM 25 MG TAB PO SCH (09:00)
[2016-10-06] MEDS: MoRPHine SULFATE CR 15 MG TAB (MS CONTIN) PO SCH (09:13)
[2016-10-06] MEDS: GABAPENTIN 300 MG CAP PO SCH (09:14)
[2016-10-06] MEDS: MULTIVITAMIN TAB PO SCH (09:14)
[2016-10-06] MEDS: PANTOprazole SOD 40 MG TAB PO SCH (09:17)
[2016-10-06] MEDS: RIVAROXABAN 10 MG TAB PO SCH (09:17)
[2016-10-06] MEDS: INSULIN ASPART 100 UNITS/ML 3 ML PEN SC SCH ×2 (09:24→12:34)
[2016-10-06 14:37] LABS: BASO % 0.3 %; BASO ABS # 0.02 K/uL (0-0.2); EOS % 1.6 %; HEMATOCRIT 24.4 % (37-47); IG% 0.3 %; LYMPH % 17.3 %; LYMPH ABS # 1.38 K/uL (1.2-3.4); MEAN CELL VOLUME 90.7 fL (80-100); MEAN CORPUSCULAR HEMOGLOBIN 30.9 pg (25-34); MEAN PLATELET VOLUME 9.9 fL (7.4-10.4); NEUT % 69.5 %; PLATELET COUNT 188 K/uL (130-400); RED BLOOD COUNT 2.69 M/uL (4.2-5.4); WHITE BLOOD COUNT 7.99 K/uL (4.8-10.8)
[2016-10-06 15:07] LABS: COMPLETE YES
[2016-10-06] MEDS ORDERED: CeleBREX 200 MG CAP PO SCH (21:00)
== END 2016-10-06 16:11 | disposition home or self-care (01) | DRG 470 ==
LOC: ENRESERVDT → ENRESERVTM → C.ACU 05:04 → C.3E 09:00
PROVIDERS: ADMIT Orthopaedic Surgery; ATTEND Orthopaedic Surgery
PROC: 0SRB0JA Replacement of Left Hip Joint with Synthetic Substitute, Uncemented, Open Approach (ICD-10-PCS; principal; 2016-10-04 07:15)
DX: M16.12 Unilateral primary osteoarthritis, left hip (principal); E66.01 Morbid (severe) obesity due to excess calories; E78.00 Pure hypercholesterolemia, unspecified; E11.9 Type 2 diabetes mellitus without complications; I10 Essential (primary) hypertension; K21.9 Gastro-esophageal reflux disease without esophagitis; Z68.37 Body mass index [BMI] 37.0-37.9, adult; Z86.718 Personal history of other venous thrombosis and embolism; Z79.01 Long term (current) use of anticoagulants

== ENCOUNTER → 2016-10-18 | Outpatient (CLI) | payer OTHER ==
[~2016-10-18] MED LIST changes: +ACET-1138 PO; +CLB200 PO; +ONDA8TAB6 PO; +SNK PO; +lovenox SQ
[2016-10-18 15:09] LABS: URINE APPEARANCE CLEAR (CLEAR); URINE BILIRUBIN NEG (NEG); URINE COLOR YELLOW; URINE EPITHELIAL CELL AUTO 0-5 /lpf (0-5); URINE NITRITE NEG (NEG); URINE SPECIFIC GRAVITY 1.012 (1.000-1.030); UROBILINOGEN NEG (NEG)
[2016-10-18 15:17] LABS: MANUAL MICROSCOPIC REQUIRED? NO; REVIEW REQ? NO
== END | disposition home or self-care (01) ==
LOC: C.LAB 13:02
PROVIDERS: ATTEND Orthopaedic Surgery
DX: R30.0 Dysuria (principal)